=== PATIENT | female | born 1990 | race Caucasian/White ===

== ENCOUNTER 2017-01-21 18:30 | Emergency (ER) | payer OTHER ==
[~2017-01-21] VITALS: Ht 175.3 cm; Wt 127.3 kg
[~2017-01-21 18:30] MED LIST: DIPH25 PO; LEVO125 PO; SIMV-261 PO
[2017-01-21] MEDS ORDERED: ACET-2116 PO (18:39)
[2017-01-21] MEDS ORDERED: PENICILLIN G BENZATHINE LA 1,200,000 UNITS/2 ML SYRINGE IM ONE (20:00)
[2017-01-21] MEDS ORDERED: MAALOX/LIDOCAINE/NYSTATIN SUSP 5 ML ORAL.SYG MM ONE (20:00)
[2017-01-21] MEDS ORDERED: PredniSONE 5 MG/5 ML SOLUTION UDCUP PO ONE (20:00)
[2017-01-21] MEDS ORDERED: IBUPROFEN 100 MG/5 ML SUSPENSION UDCUP PO ONE (20:15)
[2017-01-21] MEDS ORDERED: PredniSONE 20 MG TABLET PO ONE (20:45)
[2017-01-21 21:01] VITALS: BP 129/78
== END 2017-01-21 21:05 | disposition home or self-care (01) ==
LOC: EMS 18:32
DX: J02.0 Streptococcal pharyngitis (principal); H10.89 Other conjunctivitis; E78.00 Pure hypercholesterolemia, unspecified; E03.9 Hypothyroidism, unspecified
CPT/HCPCS: 96372; 99284; J0561; J7512; 99283